=== PATIENT | male | born 1990 | race Caucasian/White ===

== ENCOUNTER 2022-01-28 16:18 | Emergency (ER) | payer OTHER ==
[2022-01-28] MEDS ORDERED: Ketorolac 30 MG/ML SDV IM ONE (16:26)
[2022-01-28] MEDS ORDERED: Bupivacaine 0.25% 10 ML SDV INJECT ONE (16:37)
[2022-01-28] MEDS ORDERED: Lidocaine/Prilocaine 2.5-2.5% Crm 5 GM Tube TOP ONE (16:37)
== END 2022-01-28 18:01 | disposition home or self-care (01) ==
LOC: DL.ED 16:18
DX: S62.611A Displaced fracture of proximal phalanx of left index finger, initial encounter for closed fracture (principal); W23.1XXA Caught, crushed, jammed, or pinched between stationary objects, initial encounter
CPT/HCPCS: 64450; 73130-LT; 96372; 99283; 99283-25; A9270-GY; J1885; J3490